=== PATIENT | male | born 1935 | race Caucasian/White ===

== ENCOUNTER 2020-07-11 10:04 | Inpatient (IN) | payer MEDICARE, BC ==
[~2020-07-11] VITALS: Ht 172.7 cm; Wt 77.6 kg
[~2020-07-11 10:04] MED LIST: AMLO5TAB88 PO; ATOR40TA70 PO; AZIT250T PO; CARV12.545 PO; FINA5TAB11 PO; HYDR-4134 PO; ISOS30TA6 PO; METO5TAB86 MT; PANT40SU PO; SUCR1TAB30 PO
[2020-07-11] MEDS ORDERED: SODIUM CHLORIDE 0.9% 1,000 ML IV ONE (11:00)
[2020-07-11 11:40] LABS: BASOPHILS % 0.4 % (0.0-2.0); HEMATOCRIT. 41.9 % (42.0-52.0); HEMOGLOBIN. 14.1 g/dL (14.0-18.0); LYMPHOCYTES % 15.6 % (20.0-50.0); MEAN CORPUSCULAR HEMOGLOBIN 32.9 pg (28.0-32.0); MEAN CORPUSCULAR VOLUME 97.7 fL (80.0-94.0); MEAN PLATELET VOLUME 9.6 fl (7.4-10.4); PLATELET 117 x1000/uL (130-400); RED BLOOD CELL COUNT 4.29 mill/uL (4.7-6.1); RED CELL DISTRIBUTION WIDTH 14.2 % (11.6-14.6)
[2020-07-11 11:44] LABS: PROTHROMBIN TIME 10.9 sec (9.6-11.0)
[2020-07-11] MEDS ORDERED: PIPERACILLIN/TAZ 3.375G PREMIX 50 ML IV ONE (11:45)
[2020-07-11] MEDS ORDERED: VANCOMYCIN 1 G PREMIX 200 ML IV ONE (11:45)
[2020-07-11 11:46] LABS: CHLORIDE 104 mEq/L (98-107)
[2020-07-11] MEDS ORDERED: DOCUSATE SODIUM 100MG CAPSULE PO PRN (13:00)
[2020-07-11] MEDS ORDERED: ENOXAPARIN 40MG/0.4ML SYR SUBCUT SCH (13:00)
[2020-07-11] MEDS: SODIUM CHLORIDE 0.45% 1,000 ML IV SCH (13:00)
[2020-07-11] MEDS ORDERED: ONDANSETRON HCL 4MG/2ML INJ IV PRN (13:00)
[2020-07-11] MEDS ORDERED: CLONIDINE 0.1MG TABLET PO PRN (13:00)
[2020-07-11] MEDS ORDERED: MORPHINE SULFATE 2 MG/ML CPJ (NOT FOR IM USE) IV PRN (13:00)
[2020-07-11] MEDS: ENOXAPARIN 30MG/0.3ML SYR SUBCUT SCH (15:55)
[2020-07-11] MEDS: SUCRALFATE 1G TABLET PO SCH ×3 (15:56→22:50)
[2020-07-11 16:10] LABS: CLARITY URINE CLEAR (CLEAR); COLOR URINE YELLOW (YELLOW); KETONES URINE NEGATIVE (NEGATIVE); LEUKOCYTE ESTERASE URINE NEGATIVE (NEGATIVE); NITRITE URINE NEGATIVE (NEGATIVE); OCCULT BLOOD URINE NEGATIVE (NEGATIVE); PH URINE 5.5 (4.5-8.0); PROTEIN URINE TRACE (NEGATIVE); UROBILINOGEN URINE 0.2 E.U./dL (0.2-1.0)
[2020-07-11] MEDS: HYDRALAZINE HCL 25MG TABLET PO SCH (21:00)
[2020-07-11] MEDS: AMLODIPINE 5MG TABLET PO SCH (22:10)
[2020-07-11] MEDS: CARVEDILOL 12.5MG TABLET PO SCH (22:50)
[2020-07-12] MEDS: ACETAMINOPHEN 325MG TABLET PO PRN ×2 (01:53→06:12)
[2020-07-12 05:00] VITALS: BP 120/40
[2020-07-12] MEDS: PANTOPRAZOLE 40MG DR TABLET PO SCH (06:11)
[2020-07-12] MEDS: SUCRALFATE 1G TABLET PO SCH ×4 (06:11→21:36)
[2020-07-12] MEDS: SODIUM CHLORIDE 0.45% 1,000 ML IV SCH ×2 (06:55→14:12)
[2020-07-12 08:01] VITALS: BP 112/53
[2020-07-12] MEDS ORDERED: CEFTRIAXONE 1 G PREMIX 50 ML IV SCH (08:15)
[2020-07-12] MEDS: CARVEDILOL 12.5MG TABLET PO SCH ×2 (09:00→23:20)
[2020-07-12] MEDS: ISOSORBIDE MONONITRATE 30MG TABLET SR 24HR PO SCH (09:48)
[2020-07-12] MEDS: AMLODIPINE 5MG TABLET PO SCH ×2 (09:48→21:38)
[2020-07-12] MEDS: HYDRALAZINE HCL 25MG TABLET PO SCH ×2 (09:49→23:19)
[2020-07-12] MEDS: ATORVASTATIN CALCIUM 40MG TABLET PO SCH (09:49)
[2020-07-12] MEDS: FINASTERIDE 5MG TABLET PO SCH (09:49)
[2020-07-12 10:21] LABS: BASOPHILS % 0.3 % (0.0-2.0); HEMATOCRIT. 39.3 % (42.0-52.0); HEMOGLOBIN. 13.2 g/dL (14.0-18.0); MEAN CORPUSCULAR HEMOGLOBIN 32.9 pg (28.0-32.0); MEAN CORPUSCULAR VOLUME 97.9 fL (80.0-94.0); MEAN PLATELET VOLUME 9.4 fl (7.4-10.4); MONOCYTES % 7.8 % (2.0-8.0); NEUTROPHILS % 70.9 % (40.0-76.0); PLATELET 107 x1000/uL (130-400); RED BLOOD CELL COUNT 4.01 mill/uL (4.7-6.1); RED CELL DISTRIBUTION WIDTH 14.3 % (11.6-14.6)
[2020-07-12 10:34] LABS: CHLORIDE 109 mEq/L (98-107)
[2020-07-12 10:41] LABS: LDL CHOLESTEROL 49 mg/dL (5-100)
[2020-07-12 10:42] LABS: HDL CHOLESTEROL 39 mg/dL (40-59)
[2020-07-12 11:48] VITALS: BP 103/43
[2020-07-12] MEDS: CEFTRIAXONE 1,000 MG in DEXTROSE 5% WATER 50 ML IV SCH (14:23)
[2020-07-12] MEDS: CLOPIDOGREL 75MG TABLET PO SCH (14:23)
[2020-07-12] MEDS: ENOXAPARIN 30MG/0.3ML SYR SUBCUT SCH (14:24)
[2020-07-12 16:00] VITALS: BP 114/38
[2020-07-12 16:41] LABS: T4 FREE 1.31 ng/dL (0.76-1.46)
[2020-07-12] MEDS: DEXAMETHASONE 10 MG/ML VIAL IV SCH (17:42)
[2020-07-12 18:03] LABS: CREATINE KINASE MB FRACTION 1.7 ng/mL (0.5-3.6)
[2020-07-12 20:45] VITALS: BP 118/61
[2020-07-12 20:46] VITALS: BP 127/70
[2020-07-12 23:47] LABS: CREATINE KINASE MB FRACTION 1.6 ng/mL (0.5-3.6)
[2020-07-13] MEDS: SODIUM CHLORIDE 0.45% 1,000 ML IV SCH ×2 (02:19→22:09)
[2020-07-13 06:59] LABS: BASOPHILS % 0.2 % (0.0-2.0); HEMATOCRIT. 39.1 % (42.0-52.0); HEMOGLOBIN. 13.3 g/dL (14.0-18.0); LYMPHOCYTES % 14.9 % (20.0-50.0); MEAN CORPUSCULAR VOLUME 97.1 fL (80.0-94.0); MEAN PLATELET VOLUME 9.2 fl (7.4-10.4); NEUTROPHILS % 81.9 % (40.0-76.0); PLATELET 115 x1000/uL (130-400); RED BLOOD CELL COUNT 4.03 mill/uL (4.7-6.1); RED CELL DISTRIBUTION WIDTH 14.5 % (11.6-14.6)
[2020-07-13 07:37] LABS: CREATINE KINASE MB FRACTION 2.5 ng/mL (0.5-3.6)
[2020-07-13] MEDS: DEXAMETHASONE 10 MG/ML VIAL IV SCH (09:00)
[2020-07-13] MEDS: HYDRALAZINE HCL 25MG TABLET PO SCH ×2 (10:25→22:01)
[2020-07-13] MEDS: AMLODIPINE 5MG TABLET PO SCH ×2 (10:26→22:02)
[2020-07-13] MEDS: FINASTERIDE 5MG TABLET PO SCH (10:26)
[2020-07-13] MEDS: ASPIRIN 81MG TABLET PO SCH (10:26)
[2020-07-13] MEDS: CLOPIDOGREL 75MG TABLET PO SCH (10:26)
[2020-07-13] MEDS: ATORVASTATIN CALCIUM 40MG TABLET PO SCH (10:27)
[2020-07-13] MEDS: CARVEDILOL 12.5MG TABLET PO SCH ×2 (10:27→22:00)
[2020-07-13] MEDS: ISOSORBIDE MONONITRATE 30MG TABLET SR 24HR PO SCH (10:27)
[2020-07-13] MEDS: ENOXAPARIN 40MG/0.4ML SYR SUBCUT SCH (10:28)
[2020-07-13] MEDS: SUCRALFATE 1G TABLET PO SCH ×4 (10:28→21:59)
[2020-07-13] MEDS: CEFTRIAXONE 1,000 MG in DEXTROSE 5% WATER 50 ML IV SCH (10:28)
[2020-07-13] MEDS: PANTOPRAZOLE 40MG DR TABLET PO SCH (10:29)
[2020-07-13 12:00] VITALS: BP 139/54
[2020-07-13] MEDS: FUROSEMIDE 40MG/4ML VIAL IVP SCH (12:09)
[2020-07-13 16:00] VITALS: BP 120/49
[2020-07-13 20:00] VITALS: BP 122/53
[2020-07-13 22:00] VITALS: BP 122/53
[2020-07-14] VITALS: BP 107/48
[2020-07-14 04:00] VITALS: BP 129/54
[2020-07-14 06:52] LABS: HEMATOCRIT. 39.5 % (42.0-52.0); HEMOGLOBIN. 13.6 g/dL (14.0-18.0); MEAN CORPUSCULAR HEMOGLOBIN 33.2 pg (28.0-32.0); MEAN CORPUSCULAR VOLUME 96.7 fL (80.0-94.0); MEAN PLATELET VOLUME 9.3 fl (7.4-10.4); PLATELET 136 x1000/uL (130-400); RED BLOOD CELL COUNT 4.08 mill/uL (4.7-6.1); RED CELL DISTRIBUTION WIDTH 14.5 % (11.6-14.6)
[2020-07-14 08:00] VITALS: BP 142/61
[2020-07-14] MEDS: CARVEDILOL 12.5MG TABLET PO SCH ×2 (08:49→21:43)
[2020-07-14] MEDS: PANTOPRAZOLE 40MG DR TABLET PO SCH (08:49)
[2020-07-14] MEDS: AMLODIPINE 5MG TABLET PO SCH ×2 (08:49→21:42)
[2020-07-14] MEDS: SUCRALFATE 1G TABLET PO SCH ×4 (08:49→21:41)
[2020-07-14] MEDS: FINASTERIDE 5MG TABLET PO SCH (08:49)
[2020-07-14] MEDS: FUROSEMIDE 40MG/4ML VIAL IVP SCH (08:50)
[2020-07-14] MEDS: ISOSORBIDE MONONITRATE 30MG TABLET SR 24HR PO SCH (08:50)
[2020-07-14] MEDS: DEXAMETHASONE 10 MG/ML VIAL IV SCH (08:50)
[2020-07-14] MEDS: ENOXAPARIN 40MG/0.4ML SYR SUBCUT SCH (08:50)
[2020-07-14] MEDS: CLOPIDOGREL 75MG TABLET PO SCH (08:50)
[2020-07-14] MEDS: HYDRALAZINE HCL 25MG TABLET PO SCH ×2 (08:50→21:43)
[2020-07-14] MEDS: ATORVASTATIN CALCIUM 40MG TABLET PO SCH (08:50)
[2020-07-14] MEDS: ASPIRIN 81MG TABLET PO SCH (08:51)
[2020-07-14] MEDS: CEFTRIAXONE 1,000 MG in DEXTROSE 5% WATER 50 ML IV SCH (12:01)
[2020-07-14 14:26] LABS: PLATELET ESTIMATE NORMAL
[2020-07-14 16:00] VITALS: BP 141/57
[2020-07-14 20:00] VITALS: BP 128/58
[2020-07-14] MEDS: ACETAMINOPHEN 325MG TABLET PO PRN (21:41)
[2020-07-15 00:06] VITALS: BP 121/62
[2020-07-15 04:37] VITALS: BP 131/61
[2020-07-15 08:00] VITALS: BP 130/60
[2020-07-15] MEDS: FUROSEMIDE 40MG/4ML VIAL IVP SCH (09:11)
[2020-07-15] MEDS: ENOXAPARIN 40MG/0.4ML SYR SUBCUT SCH (09:11)
[2020-07-15] MEDS: DEXAMETHASONE 10 MG/ML VIAL IV SCH (09:11)
[2020-07-15] MEDS: ISOSORBIDE MONONITRATE 30MG TABLET SR 24HR PO SCH (09:12)
[2020-07-15] MEDS: SUCRALFATE 1G TABLET PO SCH ×4 (09:12→21:14)
[2020-07-15] MEDS: ATORVASTATIN CALCIUM 40MG TABLET PO SCH (09:12)
[2020-07-15] MEDS: PANTOPRAZOLE 40MG DR TABLET PO SCH (09:12)
[2020-07-15] MEDS: FINASTERIDE 5MG TABLET PO SCH (09:12)
[2020-07-15] MEDS: CARVEDILOL 12.5MG TABLET PO SCH ×2 (09:13→21:00)
[2020-07-15] MEDS: AMLODIPINE 5MG TABLET PO SCH ×2 (09:13→21:00)
[2020-07-15] MEDS: CLOPIDOGREL 75MG TABLET PO SCH (09:13)
[2020-07-15] MEDS: HYDRALAZINE HCL 25MG TABLET PO SCH ×2 (09:14→21:00)
[2020-07-15] MEDS: ASPIRIN 81MG TABLET PO SCH (09:14)
[2020-07-15] MEDS: CEFTRIAXONE 1,000 MG in DEXTROSE 5% WATER 50 ML IV SCH (09:16)
[2020-07-15 12:00] VITALS: BP 129/58
[2020-07-15 16:00] VITALS: BP 119/59
[2020-07-15 20:00] VITALS: BP 101/53
[2020-07-15] MEDS: ACETAMINOPHEN 325MG TABLET PO PRN (21:33)
[2020-07-16] VITALS: BP 136/67
[2020-07-16 04:00] VITALS: BP 145/60
[2020-07-16] MEDS: PANTOPRAZOLE 40MG DR TABLET PO SCH (05:58)
[2020-07-16] MEDS: SUCRALFATE 1G TABLET PO SCH ×4 (05:58→21:00)
[2020-07-16] MEDS: AMLODIPINE 5MG TABLET PO SCH ×2 (09:40→21:15)
[2020-07-16] MEDS: ENOXAPARIN 40MG/0.4ML SYR SUBCUT SCH (09:40)
[2020-07-16] MEDS: FINASTERIDE 5MG TABLET PO SCH (09:41)
[2020-07-16] MEDS: ASPIRIN 81MG TABLET PO SCH (09:41)
[2020-07-16] MEDS: ATORVASTATIN CALCIUM 40MG TABLET PO SCH (09:41)
[2020-07-16] MEDS: CARVEDILOL 12.5MG TABLET PO SCH ×2 (09:41→21:15)
[2020-07-16] MEDS: HYDRALAZINE HCL 25MG TABLET PO SCH ×2 (09:41→21:14)
[2020-07-16] MEDS: CLOPIDOGREL 75MG TABLET PO SCH (09:41)
[2020-07-16] MEDS: ISOSORBIDE MONONITRATE 30MG TABLET SR 24HR PO SCH (09:41)
[2020-07-16] MEDS: CEFTRIAXONE 1,000 MG in DEXTROSE 5% WATER 50 ML IV SCH (10:48)
[2020-07-16] MEDS: FUROSEMIDE 40MG/4ML VIAL IVP SCH (10:48)
[2020-07-16] MEDS: DEXAMETHASONE 10 MG/ML VIAL IV SCH (10:48)
[2020-07-16 12:00] VITALS: BP 134/59
[2020-07-16 16:00] VITALS: BP 141/76
[2020-07-16 20:00] VITALS: BP 164/68
[2020-07-16] MEDS: ZOLPIDEM TARTRATE 5MG TABLET PO PRN (21:14)
[2020-07-17] VITALS: BP 142/65
[2020-07-17 04:00] VITALS: BP 146/62
[2020-07-17] MEDS: FAMOTIDINE 20MG TABLET PO SCH (06:00)
[2020-07-17] MEDS: SUCRALFATE 1G TABLET PO SCH ×4 (06:00→21:30)
[2020-07-17 08:00] VITALS: BP 134/61
[2020-07-17] MEDS: DEXAMETHASONE 10 MG/ML VIAL IV SCH (09:41)
[2020-07-17] MEDS: ENOXAPARIN 40MG/0.4ML SYR SUBCUT SCH (09:41)
[2020-07-17] MEDS: FINASTERIDE 5MG TABLET PO SCH (09:41)
[2020-07-17] MEDS: ATORVASTATIN CALCIUM 40MG TABLET PO SCH (09:41)
[2020-07-17] MEDS: CLOPIDOGREL 75MG TABLET PO SCH (09:41)
[2020-07-17] MEDS: CARVEDILOL 12.5MG TABLET PO SCH ×2 (09:42→21:31)
[2020-07-17] MEDS: ISOSORBIDE MONONITRATE 30MG TABLET SR 24HR PO SCH (09:42)
[2020-07-17] MEDS: ASPIRIN 81MG TABLET PO SCH (09:42)
[2020-07-17] MEDS: AMLODIPINE 5MG TABLET PO SCH ×2 (09:43→21:31)
[2020-07-17] MEDS: HYDRALAZINE HCL 25MG TABLET PO SCH ×2 (09:43→21:32)
[2020-07-17] MEDS: FUROSEMIDE 20MG TABLET PO SCH (09:45)
[2020-07-17 10:25] LABS: BASOPHILS % 0.2 % (0.0-2.0); HEMATOCRIT. 41.6 % (42.0-52.0); HEMOGLOBIN. 13.8 g/dL (14.0-18.0); LYMPHOCYTES % 7.6 % (20.0-50.0); MEAN CORPUSCULAR VOLUME 96.5 fL (80.0-94.0); MEAN PLATELET VOLUME 8.6 fl (7.4-10.4); MONOCYTES % 4.2 % (2.0-8.0); PLATELET 202 x1000/uL (130-400); RED BLOOD CELL COUNT 4.32 mill/uL (4.7-6.1)
[2020-07-17] MEDS: CEFTRIAXONE 1,000 MG in DEXTROSE 5% WATER 50 ML IV SCH (11:16)
[2020-07-17 12:00] VITALS: BP 126/67
[2020-07-17] MEDS ORDERED: POTASSIUM CHLORIDE 20MEQ TABLET SR PO NR (14:15)
[2020-07-17 16:00] VITALS: BP 138/62
[2020-07-17 20:00] VITALS: BP 139/63
[2020-07-17] MEDS: ZOLPIDEM TARTRATE 5MG TABLET PO PRN (21:56)
[2020-07-18] VITALS: BP 136/62
[2020-07-18 04:00] VITALS: BP 150/66
[2020-07-18] MEDS: SUCRALFATE 1G TABLET PO SCH ×4 (05:18→22:02)
[2020-07-18] MEDS: FAMOTIDINE 20MG TABLET PO SCH (05:18)
[2020-07-18 07:10] LABS: HEMATOCRIT. 43.7 % (42.0-52.0); HEMOGLOBIN. 14.6 g/dL (14.0-18.0); MEAN CORPUSCULAR HEMOGLOBIN 32.1 pg (28.0-32.0); MEAN CORPUSCULAR VOLUME 95.7 fL (80.0-94.0); MEAN PLATELET VOLUME 8.5 fl (7.4-10.4); PLATELET 219 x1000/uL (130-400); RED BLOOD CELL COUNT 4.56 mill/uL (4.7-6.1)
[2020-07-18 08:00] VITALS: BP 155/73
[2020-07-18] MEDS: CARVEDILOL 12.5MG TABLET PO SCH ×2 (08:02→22:04)
[2020-07-18] MEDS: FUROSEMIDE 20MG TABLET PO SCH (08:02)
[2020-07-18] MEDS: ATORVASTATIN CALCIUM 40MG TABLET PO SCH (08:02)
[2020-07-18] MEDS: ASPIRIN 81MG TABLET PO SCH (08:02)
[2020-07-18] MEDS: ISOSORBIDE MONONITRATE 30MG TABLET SR 24HR PO SCH (08:02)
[2020-07-18] MEDS: HYDRALAZINE HCL 25MG TABLET PO SCH ×2 (08:02→22:02)
[2020-07-18] MEDS: ENOXAPARIN 40MG/0.4ML SYR SUBCUT SCH (08:03)
[2020-07-18] MEDS: FINASTERIDE 5MG TABLET PO SCH (08:03)
[2020-07-18] MEDS: DEXAMETHASONE 10 MG/ML VIAL IV SCH (08:03)
[2020-07-18] MEDS: AMLODIPINE 5MG TABLET PO SCH ×2 (08:03→22:03)
[2020-07-18] MEDS: CLOPIDOGREL 75MG TABLET PO SCH (08:03)
[2020-07-18 12:00] VITALS: BP 141/75
[2020-07-18 14:51] LABS: PLATELET ESTIMATE NORMAL
[2020-07-18 16:00] VITALS: BP 144/66
[2020-07-18 18:22] LABS: BG BASE EXCESS -1.1 mmol/L (-2.0-2.0); BG CARBOXYHEMOGLOBIN 0.3 % (0.5-1.5); BG DEOXYHEMOGLOBIN 10.8 % (0.0-5.0); BG FRACTION INSPIRED OXYGEN 21; BG HCO3 ACT 20.3 mmol/L (22.0-26.0); BG METHEMOGLOBIN 0.1 % (0.0-1.5); BG OXYGEN SATURATION 89.2 % (92.0-98.5); BG OXYHEMOGLOBIN 88.8 % (94.0-97.0); BG PCO2 26.9 mmHg (35.0-45.0); BG PH 7.495 (7.350-7.450); BG PO2 54.6 mmHg (75.0-100.0); BG SAMPLE SITE LEFT RADIAL; BG TOTAL HEMOGLOBIN 17.4 g/dL (12.0-18.0); BG VENT MODE ROOM AIR
[2020-07-18 20:00] VITALS: BP 127/67
[2020-07-18] MEDS: ZOLPIDEM TARTRATE 5MG TABLET PO PRN (22:01)
[2020-07-19] VITALS: BP 135/64
[2020-07-19 04:00] VITALS: BP 125/71
[2020-07-19] MEDS: FAMOTIDINE 20MG TABLET PO SCH (05:12)
[2020-07-19] MEDS: SUCRALFATE 1G TABLET PO SCH ×4 (05:12→21:01)
[2020-07-19 07:34] LABS: HEMATOCRIT. 44.5 % (42.0-52.0); MEAN CORPUSCULAR HEMOGLOBIN 32.6 pg (28.0-32.0); MEAN CORPUSCULAR VOLUME 96.8 fL (80.0-94.0); MEAN PLATELET VOLUME 8.7 fl (7.4-10.4); PLATELET 271 x1000/uL (130-400); RED BLOOD CELL COUNT 4.59 mill/uL (4.7-6.1); RED CELL DISTRIBUTION WIDTH 13.6 % (11.6-14.6)
[2020-07-19 08:00] VITALS: BP 134/73
[2020-07-19] MEDS: CLOPIDOGREL 75MG TABLET PO SCH (08:12)
[2020-07-19] MEDS: CARVEDILOL 12.5MG TABLET PO SCH ×2 (08:12→21:00)
[2020-07-19] MEDS: ISOSORBIDE MONONITRATE 30MG TABLET SR 24HR PO SCH (08:12)
[2020-07-19] MEDS: ENOXAPARIN 40MG/0.4ML SYR SUBCUT SCH (08:12)
[2020-07-19] MEDS: FUROSEMIDE 20MG TABLET PO SCH (08:12)
[2020-07-19] MEDS: DEXAMETHASONE 10 MG/ML VIAL IV SCH (08:12)
[2020-07-19] MEDS: AMLODIPINE 5MG TABLET PO SCH ×2 (08:13→21:00)
[2020-07-19] MEDS: HYDRALAZINE HCL 25MG TABLET PO SCH ×2 (08:13→21:00)
[2020-07-19] MEDS: ATORVASTATIN CALCIUM 40MG TABLET PO SCH (08:13)
[2020-07-19] MEDS: ASPIRIN 81MG TABLET PO SCH (08:13)
[2020-07-19] MEDS: FINASTERIDE 5MG TABLET PO SCH (08:13)
[2020-07-19 12:00] VITALS: BP 125/71
[2020-07-19 15:09] LABS: PLATELET ESTIMATE NORMAL
[2020-07-19 16:00] VITALS: BP 136/68
[2020-07-19 20:00] VITALS: BP 128/56
[2020-07-20] VITALS: BP 138/58
[2020-07-20 04:00] VITALS: BP 140/65
[2020-07-20] MEDS: FAMOTIDINE 20MG TABLET PO SCH (05:10)
[2020-07-20] MEDS: SUCRALFATE 1G TABLET PO SCH (05:10)
[2020-07-20 07:21] LABS: HEMATOCRIT. 40.9 % (42.0-52.0); HEMOGLOBIN. 13.7 g/dL (14.0-18.0); MEAN CORPUSCULAR HEMOGLOBIN 32.2 pg (28.0-32.0); MEAN CORPUSCULAR VOLUME 96.4 fL (80.0-94.0); MEAN PLATELET VOLUME 8.6 fl (7.4-10.4); PLATELET 263 x1000/uL (130-400); RED BLOOD CELL COUNT 4.24 mill/uL (4.7-6.1); RED CELL DISTRIBUTION WIDTH 13.8 % (11.6-14.6)
[2020-07-20 08:45] VITALS: BP 145/64
[2020-07-20] MEDS: DEXAMETHASONE 10 MG/ML VIAL IV SCH (08:49)
[2020-07-20] MEDS: CARVEDILOL 12.5MG TABLET PO SCH (08:49)
[2020-07-20] MEDS: AMLODIPINE 5MG TABLET PO SCH (08:49)
[2020-07-20] MEDS: ATORVASTATIN CALCIUM 40MG TABLET PO SCH (08:50)
[2020-07-20] MEDS: CLOPIDOGREL 75MG TABLET PO SCH (08:50)
[2020-07-20] MEDS: ISOSORBIDE MONONITRATE 30MG TABLET SR 24HR PO SCH (08:50)
[2020-07-20] MEDS: ASPIRIN 81MG TABLET PO SCH (08:51)
[2020-07-20] MEDS: FUROSEMIDE 20MG TABLET PO SCH (08:51)
[2020-07-20] MEDS: HYDRALAZINE HCL 25MG TABLET PO SCH (08:51)
[2020-07-20] MEDS: ENOXAPARIN 40MG/0.4ML SYR SUBCUT SCH (09:02)
[2020-07-20] MEDS ORDERED: POTASSIUM CHLORIDE 20MEQ TABLET SR PO SCH (09:30)
[2020-07-20 10:21] VITALS: BP 147/65
[2020-07-20] MEDS: FINASTERIDE 5MG TABLET PO SCH (11:03)
[2020-07-20 22:24] LABS: PLATELET ESTIMATE NORMAL
== END 2020-07-20 18:16 | disposition home or self-care (01) | DRG 871 ==
LOC: ER 10:15 → MICUSO 13:30 → EDBEDREQ 13:33 → EDBEDREQSVC 13:33 → EDBEDREQTM 13:33 → 6WST 07-12 02:15 → 7WST 07-12 14:57
PROVIDERS: ADMIT Internal Medicine Nephrology; ATTEND Internal Medicine Nephrology
DX: A41.89 Other specified sepsis (principal); U07.1 COVID-19; J96.00 Acute respiratory failure, unspecified whether with hypoxia or hypercapnia; J12.82 Pneumonia due to coronavirus disease 2019; I13.0 Hypertensive heart and chronic kidney disease with heart failure and stage 1 through stage 4 chronic kidney disease, or unspecified chronic kidney disease; N17.9 Acute kidney failure, unspecified; I50.22 Chronic systolic (congestive) heart failure; D61.818 Other pancytopenia; D69.6 Thrombocytopenia, unspecified; E78.5 Hyperlipidemia, unspecified; F17.200 Nicotine dependence, unspecified, uncomplicated; I25.10 Atherosclerotic heart disease of native coronary artery without angina pectoris; I25.5 Ischemic cardiomyopathy; I71.4 Abdominal aortic aneurysm, without rupture; J45.909 Unspecified asthma, uncomplicated; K44.9 Diaphragmatic hernia without obstruction or gangrene; N18.30 Chronic kidney disease, stage 3 unspecified; T38.0X5A Adverse effect of glucocorticoids and synthetic analogues, initial encounter; B97.89 Other viral agents as the cause of diseases classified elsewhere; I95.9 Hypotension, unspecified; D64.9 Anemia, unspecified; R77.8 Other specified abnormalities of plasma proteins; N40.0 Benign prostatic hyperplasia without lower urinary tract symptoms; Z85.528 Personal history of other malignant neoplasm of kidney; Z95.1 Presence of aortocoronary bypass graft; Z90.5 Acquired absence of kidney; Z79.02 Long term (current) use of antithrombotics/antiplatelets; Z79.899 Other long term (current) drug therapy; Y92.89 Other specified places as the place of occurrence of the external cause; Z79.2 Long term (current) use of antibiotics
CPT/HCPCS: 36415; 36600; 71045; 80048; 80053; 80061; 81003; 82140; 82375; 82550; 82553; 82805; 83036; 83605; 83880; 84145; 84439; 84443; 84484; 85025; 85379; 87426; 93005; 93306; 93970; 96365; 99285; J0696; J1100; J1650; J1940; J2543; J3370; J7030; J7060; U0003

== ENCOUNTER 2021-05-27 11:46 | Inpatient (IN) | payer MEDICARE, BC ==
[~2021-05-27] VITALS: Ht 170.2 cm; Wt 73.3 kg
[~2021-05-27 11:46] MED LIST changes: -ISOS30TA6 PO; +ISOS30TA91 PO
[2021-05-27] MEDS ORDERED: ALBUTEROL (0.083%) 2.5MG/3ML NEB HHN ONE (12:15)
[2021-05-27] MEDS ORDERED: DEXAMETHASONE 10 MG/ML VIAL IV ONE (12:15)
[2021-05-27] MEDS ORDERED: IPRATROPIUM BROMIDE (0.02%) 0.5MG/2.5ML NEB HHN ONE (12:15)
[2021-05-27 12:24] LABS: BG BASE EXCESS 1.9 mmol/L (-2.0-2.0); BG CARBOXYHEMOGLOBIN 0.1 % (0.5-1.5); BG DEOXYHEMOGLOBIN 5.5 % (0.0-5.0); BG FRACTION INSPIRED OXYGEN 21; BG HCO3 ACT 23.6 mmol/L (22.0-26.0); BG METHEMOGLOBIN 0.2 % (0.0-1.5); BG OXYGEN SATURATION 94.5 % (92.0-98.5); BG OXYHEMOGLOBIN 94.2 % (94.0-97.0); BG PCO2 28.6 mmHg (35.0-45.0); BG PH 7.534 (7.350-7.450); BG SAMPLE SITE RIGHT RADIAL; BG TOTAL HEMOGLOBIN 12.8 g/dL (12.0-18.0); BG VENT MODE ROOM AIR
[2021-05-27 12:58] LABS: CHLORIDE 100 mEq/L (98-107)
[2021-05-27] MEDS ORDERED: POTASSIUM CHLORIDE 20MEQ TABLET SR PO ONE (13:30)
[2021-05-27] MEDS ORDERED: PIPERACILLIN/TAZOBACTAM 3.375GM/50ML PREMIX IV ONE (13:30)
[2021-05-27] MEDS ORDERED: ASPIRIN 325MG EC TABLET PO ONE (13:30)
[2021-05-27] MEDS ORDERED: ENOXAPARIN 60MG/0.6ML SYR SUBCUT NR (13:30)
[2021-05-27] MEDS ORDERED: VANCOMYCIN 1 G PREMIX 200 ML IV NR (13:30)
[2021-05-27] MEDS ORDERED: PIPERACILLIN/TAZ 3.375G PREMIX 50 ML IV NR (13:30)
[2021-05-27 13:58] LABS: BASOPHILS % 0.3 % (0.0-2.0); EOSINOPHILS % 1.1 % (0.0-5.0); HEMATOCRIT. 37.8 % (42.0-52.0); HEMOGLOBIN. 12.5 g/dL (14.0-18.0); LYMPHOCYTES % 24.6 % (20.0-50.0); MEAN CORPUSCULAR HEMOGLOBIN 31.8 pg (28.0-32.0); MEAN CORPUSCULAR VOLUME 96.4 fL (80.0-94.0); MEAN PLATELET VOLUME 10.1 fl (7.4-10.4); MONOCYTES % 9.5 % (2.0-8.0); NEUTROPHILS % 64.5 % (40.0-76.0); PLATELET 191 x1000/uL (130-400); RED BLOOD CELL COUNT 3.92 mill/uL (4.7-6.1); RED CELL DISTRIBUTION WIDTH 14.5 % (11.6-14.6)
[2021-05-27] MEDS ORDERED: FUROSEMIDE 40MG/4ML VIAL IVP NR (14:00)
[2021-05-27 20:05] LABS: CLARITY URINE CLEAR (CLEAR); COLOR URINE YELLOW (YELLOW); KETONES URINE NEGATIVE (NEGATIVE); LEUKOCYTE ESTERASE URINE NEGATIVE (NEGATIVE); NITRITE URINE NEGATIVE (NEGATIVE); OCCULT BLOOD URINE NEGATIVE (NEGATIVE); PROTEIN URINE NEGATIVE (NEGATIVE); SPECIFIC GRAVITY URINE 1.013 (1.005-1.030); UROBILINOGEN URINE 0.2 E.U./dL (0.2-1.0)
[2021-05-28] MEDS ORDERED: IPRATROPIUM/ALBUTEROL 0.5-3(2.5)MG/3ML NEB NEB SCH (06:15)
[2021-05-28] MEDS ORDERED: CLONIDINE 0.1MG TABLET PO PRN (06:15)
[2021-05-28] MEDS ORDERED: ONDANSETRON HCL 4MG/2ML INJ IV PRN (06:15)
[2021-05-28] MEDS ORDERED: ENOXAPARIN 40MG/0.4ML SYR SUBCUT SCH (06:15)
[2021-05-28] MEDS ORDERED: MORPHINE SULFATE 2 MG/ML CPJ (NOT FOR IM USE) IV PRN (06:15)
[2021-05-28] MEDS ORDERED: AZITHROMYCIN 500 MG in DEXT 5% WATER 250 ML IV SCH (06:30)
[2021-05-28] MEDS ORDERED: DEXAMETHASONE 10 MG/ML VIAL IV SCH (07:00)
[2021-05-28] MEDS: SUCRALFATE 1G TABLET PO SCH ×4 (07:24→21:11)
[2021-05-28] MEDS ORDERED: DOCUSATE SODIUM 100MG CAPSULE PO PRN (09:00)
[2021-05-28] MEDS ORDERED: NALOXONE HCL 0.4MG/ML VIAL IV PRN (09:00)
[2021-05-28 09:19] VITALS: BP 112/79
[2021-05-28 09:21] VITALS: BP 130/79
[2021-05-28] MEDS: ISOSORBIDE MONONITRATE 30MG TABLET SR 24HR PO SCH ×2 (10:29→17:24)
[2021-05-28] MEDS: AMLODIPINE 5MG TABLET PO SCH ×2 (10:30→17:24)
[2021-05-28] MEDS: CARVEDILOL 12.5MG TABLET PO SCH ×2 (10:30→21:12)
[2021-05-28] MEDS: FINASTERIDE 5MG TABLET PO SCH (10:30)
[2021-05-28] MEDS: ENOXAPARIN 30MG/0.3ML SYR SUBCUT SCH (10:31)
[2021-05-28] MEDS: FUROSEMIDE 40MG/4ML VIAL IVP SCH ×2 (10:38→18:08)
[2021-05-28] MEDS ORDERED: GUAIFENESIN-DM 200MG-20MG/10ML UDC PO PRN (11:15)
[2021-05-28] MEDS ORDERED: ALBUTEROL 6.7GM HFA INHALER ORI PRN (11:15)
[2021-05-28 12:00] VITALS: BP 126/67
[2021-05-28 16:00] VITALS: BP 127/59
[2021-05-28 20:00] VITALS: BP 123/71
[2021-05-29] VITALS: BP 127/71
[2021-05-29 04:00] VITALS: BP 124/70
[2021-05-29] MEDS: SUCRALFATE 1G TABLET PO SCH ×4 (06:45→20:28)
[2021-05-29 07:22] LABS: BASOPHILS % 0.1 % (0.0-2.0); HEMATOCRIT. 37.8 % (42.0-52.0); HEMOGLOBIN. 12.6 g/dL (14.0-18.0); LYMPHOCYTES % 10.7 % (20.0-50.0); MEAN CORPUSCULAR HEMOGLOBIN 32.4 pg (28.0-32.0); MEAN CORPUSCULAR VOLUME 97.2 fL (80.0-94.0); MEAN PLATELET VOLUME 10.4 fl (7.4-10.4); MONOCYTES % 5.6 % (2.0-8.0); NEUTROPHILS % 83.6 % (40.0-76.0); PLATELET 158 x1000/uL (130-400); RED BLOOD CELL COUNT 3.88 mill/uL (4.7-6.1); RED CELL DISTRIBUTION WIDTH 14.9 % (11.6-14.6)
[2021-05-29 07:41] LABS: CHLORIDE 95 mEq/L (98-107)
[2021-05-29 08:00] VITALS: BP 119/95
[2021-05-29] MEDS: AZITHROMYCIN 500 MG in DEXT 5% WATER 250 ML IV SCH (08:42)
[2021-05-29] MEDS: FUROSEMIDE 40MG/4ML VIAL IVP SCH (08:43)
[2021-05-29] MEDS: DEXAMETHASONE 10 MG/ML VIAL IV SCH (08:43)
[2021-05-29] MEDS: FINASTERIDE 5MG TABLET PO SCH (09:33)
[2021-05-29] MEDS: AMLODIPINE 5MG TABLET PO SCH ×2 (09:33→17:33)
[2021-05-29] MEDS: ENOXAPARIN 30MG/0.3ML SYR SUBCUT SCH (09:34)
[2021-05-29 12:00] VITALS: BP 95/51
[2021-05-29] MEDS: FUROSEMIDE 40MG TABLET PO SCH (12:55)
[2021-05-29 16:00] VITALS: BP 110/58
[2021-05-29 20:00] VITALS: BP 118/61
[2021-05-29] MEDS: ZOLPIDEM TARTRATE 5MG TABLET PO PRN (21:26)
[2021-05-29 21:32] LABS: VITAMIN B12 SERUM >2000 pg/mL pg/mL (211-911)
[2021-05-29 21:34] LABS: FOLIC ACID (FOLATE) SERUM > 20.00 ng/mL (>5.38)
[2021-05-30 00:23] LABS: HEPATITIS B SURFACE ANTIGEN NEGATIVE
[2021-05-30] MEDS ORDERED: ALBUTEROL (0.083%) 2.5MG/3ML NEB HHN PRN (02:15)
[2021-05-30 04:00] VITALS: BP 125/68
[2021-05-30] MEDS: SUCRALFATE 1G TABLET PO SCH ×4 (06:10→21:25)
[2021-05-30] MEDS: LORAZEPAM 2MG/ML CPJ IV PRN (07:47)
[2021-05-30 08:00] VITALS: BP 104/52
[2021-05-30] MEDS ORDERED: SODIUM CHLORIDE 0.9% 1,000 ML IV SCH (08:00)
[2021-05-30] MEDS: ISOSORBIDE MONONITRATE 30MG TABLET SR 24HR PO SCH (09:00)
[2021-05-30] MEDS: AMLODIPINE 5MG TABLET PO SCH ×2 (09:00→17:33)
[2021-05-30] MEDS: AZITHROMYCIN 500 MG in DEXT 5% WATER 250 ML IV SCH (10:00)
[2021-05-30] MEDS: FUROSEMIDE 40MG TABLET PO SCH (10:01)
[2021-05-30] MEDS: DEXAMETHASONE 10 MG/ML VIAL IV SCH (10:01)
[2021-05-30] MEDS: FINASTERIDE 5MG TABLET PO SCH (10:01)
[2021-05-30] MEDS: ENOXAPARIN 30MG/0.3ML SYR SUBCUT SCH (10:44)
[2021-05-30 10:56] LABS: HEMATOCRIT. 35.9 % (42.0-52.0); HEMOGLOBIN. 12.2 g/dL (14.0-18.0); MEAN CORPUSCULAR HEMOGLOBIN 33.4 pg (28.0-32.0); MEAN CORPUSCULAR VOLUME 98.5 fL (80.0-94.0); MEAN PLATELET VOLUME 11.2 fl (7.4-10.4); PLATELET 117 x1000/uL (130-400); RED BLOOD CELL COUNT 3.65 mill/uL (4.7-6.1); RED CELL DISTRIBUTION WIDTH 14.5 % (11.6-14.6)
[2021-05-30 12:00] VITALS: BP 118/76
[2021-05-30 13:51] LABS: PLATELET ESTIMATE SLIGHTLY DECREASED
[2021-05-30 16:00] VITALS: BP 110/56
[2021-05-30 20:00] VITALS: BP 109/40
[2021-05-30] MEDS: SODIUM BICARBONATE 100 MEQ in DEXTROSE 5% WATER 1,000 ML IV SCH (21:26)
[2021-05-31] VITALS: BP 125/72
[2021-05-31 04:00] VITALS: BP 104/59
[2021-05-31] MEDS: SUCRALFATE 1G TABLET PO SCH ×4 (06:20→21:55)
[2021-05-31 07:53] LABS: BASOPHILS % 0.1 % (0.0-2.0); HEMATOCRIT. 37.4 % (42.0-52.0); HEMOGLOBIN. 12.5 g/dL (14.0-18.0); LYMPHOCYTES % 7.9 % (20.0-50.0); MEAN CORPUSCULAR HEMOGLOBIN 32.7 pg (28.0-32.0); MEAN CORPUSCULAR VOLUME 97.9 fL (80.0-94.0); MEAN PLATELET VOLUME 11.7 fl (7.4-10.4); MONOCYTES % 4.6 % (2.0-8.0); NEUTROPHILS % 87.4 % (40.0-76.0); PLATELET 121 x1000/uL (130-400); RED BLOOD CELL COUNT 3.82 mill/uL (4.7-6.1); RED CELL DISTRIBUTION WIDTH 14.4 % (11.6-14.6)
[2021-05-31 08:00] VITALS: BP 117/59
[2021-05-31] MEDS: AZITHROMYCIN 500 MG TABLET PO SCH (09:09)
[2021-05-31] MEDS: ISOSORBIDE MONONITRATE 30MG TABLET SR 24HR PO SCH (09:09)
[2021-05-31] MEDS: AMLODIPINE 5MG TABLET PO SCH ×2 (09:09→17:00)
[2021-05-31] MEDS: FINASTERIDE 5MG TABLET PO SCH (09:09)
[2021-05-31] MEDS: ENOXAPARIN 30MG/0.3ML SYR SUBCUT SCH (09:09)
[2021-05-31] MEDS ORDERED: DIATR MEGLU/DIATRIZOATE SOLN 30ML PO SCH (10:45)
[2021-05-31 12:00] VITALS: BP 95/56
[2021-05-31] MEDS ORDERED: MANNITOL 12.5G (25%) VIAL 50ML IV NR (12:00)
[2021-05-31] MEDS: SODIUM BICARBONATE 100 MEQ in DEXTROSE 5% WATER 1,000 ML IV SCH (13:36)
[2021-05-31 13:46] LABS: PARTIAL THROMBOPLASTIN TIME 37.1 sec (23.4-31.0); PROTHROMBIN TIME 20.3 sec (9.6-11.0)
[2021-05-31] MEDS ORDERED: PHYTONADIONE 10MG/ML AMP SUBCUT NR (14:00)
[2021-05-31] MEDS ORDERED: IPRATROPIUM/ALBUTEROL 0.5-3(2.5)MG/3ML NEB HHN ONE (14:15)
[2021-05-31] MEDS ORDERED: IPRATROPIUM/ALBUTEROL 0.5-3(2.5)MG/3ML NEB HHN PRN (14:15)
[2021-05-31] MEDS ORDERED: RACEPINEPHRINE 2.25% 0.5ML NEB VIAL HHN SCH (14:15)
[2021-05-31] MEDS ORDERED: LIDOCAINE HCL 1% 20ML VIAL (Pyxis) INJ ONE (14:27)
[2021-05-31 15:23] LABS: BG BASE EXCESS -6.7 mmol/L (-2.0-2.0); BG DEOXYHEMOGLOBIN 2.8 % (0.0-5.0); BG FRACTION INSPIRED OXYGEN 32; BG HCO3 ACT 16.2 mmol/L (22.0-26.0); BG METHEMOGLOBIN 0.1 % (0.0-1.5); BG OXYGEN SATURATION 97.2 % (92.0-98.5); BG OXYHEMOGLOBIN 97.1 % (94.0-97.0); BG PCO2 25.8 mmHg (35.0-45.0); BG PH 7.415 (7.350-7.450); BG PO2 99.4 mmHg (75.0-100.0); BG SAMPLE SITE RIGHT RADIAL; BG TOTAL HEMOGLOBIN 12.9 g/dL (12.0-18.0); BG VENT MODE NASAL CANNULA
[2021-05-31 16:00] VITALS: BP 96/55
[2021-05-31] MEDS ORDERED: RACEPINEPHRINE 2.25% 0.5ML NEB VIAL HHN PRN (18:00)
[2021-05-31] MEDS: SODIUM CHLORIDE 0.9% 1,000 ML IV SCH (18:34)
[2021-05-31 21:47] VITALS: BP 121/59
[2021-06-01] VITALS: BP 109/52
[2021-06-01] MEDS: IPRATROPIUM/ALBUTEROL 0.5-3(2.5)MG/3ML NEB HHN SCH ×4 (01:14→21:34)
[2021-06-01 04:00] VITALS: BP 102/48
[2021-06-01] MEDS: SODIUM CHLORIDE 0.9% 1,000 ML IV SCH ×2 (05:03→15:40)
[2021-06-01 06:34] LABS: BASOPHILS % 0.1 % (0.0-2.0); HEMATOCRIT. 36.5 % (42.0-52.0); HEMOGLOBIN. 12.2 g/dL (14.0-18.0); LYMPHOCYTES % 7.8 % (20.0-50.0); MEAN CORPUSCULAR HEMOGLOBIN 32.7 pg (28.0-32.0); MEAN CORPUSCULAR VOLUME 97.6 fL (80.0-94.0); MEAN PLATELET VOLUME 11.6 fl (7.4-10.4); MONOCYTES % 5.2 % (2.0-8.0); NEUTROPHILS % 86.9 % (40.0-76.0); PLATELET 111 x1000/uL (130-400); RED BLOOD CELL COUNT 3.74 mill/uL (4.7-6.1); RED CELL DISTRIBUTION WIDTH 14.4 % (11.6-14.6)
[2021-06-01] MEDS: SUCRALFATE 1G TABLET PO SCH ×4 (06:43→21:34)
[2021-06-01 08:00] VITALS: BP 130/70
[2021-06-01] MEDS: AZITHROMYCIN 500 MG TABLET PO SCH (09:00)
[2021-06-01] MEDS: ISOSORBIDE MONONITRATE 30MG TABLET SR 24HR PO SCH (09:00)
[2021-06-01] MEDS: AMLODIPINE 5MG TABLET PO SCH ×2 (09:00→16:31)
[2021-06-01] MEDS: ENOXAPARIN 30MG/0.3ML SYR SUBCUT SCH (09:00)
[2021-06-01] MEDS: FINASTERIDE 5MG TABLET PO SCH (09:00)
[2021-06-01] MEDS: MIDODRINE HCL 5MG TABLET PO SCH ×3 (09:45→16:31)
[2021-06-01 12:00] VITALS: BP 113/58
[2021-06-01 16:00] VITALS: BP 112/60
[2021-06-01 20:00] VITALS: BP 116/64
[2021-06-01] MEDS: ZOLPIDEM TARTRATE 5MG TABLET PO PRN (21:34)
[2021-06-01 22:12] LABS: CREATINE KINASE 8138 IU/L (39-308)
[2021-06-02] VITALS: BP 109/62
[2021-06-02] MEDS: LORAZEPAM 2MG/ML CPJ IV PRN (00:56)
[2021-06-02 04:00] VITALS: BP 149/80
[2021-06-02] MEDS: SODIUM CHLORIDE 0.9% 1,000 ML IV SCH ×2 (05:24→19:20)
[2021-06-02] MEDS: SUCRALFATE 1G TABLET PO SCH ×4 (05:59→20:48)
[2021-06-02 08:00] VITALS: BP 100/53
[2021-06-02] MEDS: AMLODIPINE 5MG TABLET PO SCH ×2 (08:21→17:00)
[2021-06-02] MEDS: ISOSORBIDE MONONITRATE 30MG TABLET SR 24HR PO SCH (08:28)
[2021-06-02] MEDS: MIDODRINE HCL 5MG TABLET PO SCH ×3 (08:29→17:26)
[2021-06-02] MEDS: FINASTERIDE 5MG TABLET PO SCH (08:29)
[2021-06-02] MEDS: ENOXAPARIN 30MG/0.3ML SYR SUBCUT SCH (08:29)
[2021-06-02 08:46] LABS: BASOPHILS % 0.2 % (0.0-2.0); HEMATOCRIT. 35.7 % (42.0-52.0); HEMOGLOBIN. 11.9 g/dL (14.0-18.0); LYMPHOCYTES % 9.1 % (20.0-50.0); MEAN CORPUSCULAR HEMOGLOBIN 31.9 pg (28.0-32.0); MEAN CORPUSCULAR VOLUME 95.5 fL (80.0-94.0); MEAN PLATELET VOLUME 11.7 fl (7.4-10.4); MONOCYTES % 6.5 % (2.0-8.0); NEUTROPHILS % 84.2 % (40.0-76.0); PLATELET 108 x1000/uL (130-400); RED BLOOD CELL COUNT 3.74 mill/uL (4.7-6.1); RED CELL DISTRIBUTION WIDTH 14.6 % (11.6-14.6)
[2021-06-02 12:00] VITALS: BP 126/64
[2021-06-02] MEDS: IPRATROPIUM/ALBUTEROL 0.5-3(2.5)MG/3ML NEB HHN SCH ×2 (15:10→21:45)
[2021-06-02 16:00] VITALS: BP 114/62
[2021-06-02 20:00] VITALS: BP 92/51
[2021-06-02] MEDS: ZOLPIDEM TARTRATE 5MG TABLET PO PRN (22:56)
[2021-06-03] VITALS: BP 127/58
[2021-06-03] MEDS: IPRATROPIUM/ALBUTEROL 0.5-3(2.5)MG/3ML NEB HHN SCH ×4 (02:26→20:53)
[2021-06-03 04:00] VITALS: BP 121/65
[2021-06-03] MEDS: SUCRALFATE 1G TABLET PO SCH ×4 (06:37→20:15)
[2021-06-03 07:45] VITALS: BP 115/58
[2021-06-03] MEDS: AMLODIPINE 5MG TABLET PO SCH ×2 (08:55→16:08)
[2021-06-03] MEDS: FINASTERIDE 5MG TABLET PO SCH (08:55)
[2021-06-03] MEDS: MIDODRINE HCL 5MG TABLET PO SCH ×3 (08:55→16:09)
[2021-06-03] MEDS: ISOSORBIDE MONONITRATE 30MG TABLET SR 24HR PO SCH (08:55)
[2021-06-03] MEDS: SODIUM CHLORIDE 0.9% 1,000 ML IV SCH (08:56)
[2021-06-03] MEDS: ENOXAPARIN 30MG/0.3ML SYR SUBCUT SCH (08:59)
[2021-06-03 10:00] LABS: BASOPHILS % 0.1 % (0.0-2.0); HEMATOCRIT. 35.7 % (42.0-52.0); HEMOGLOBIN. 11.6 g/dL (14.0-18.0); LYMPHOCYTES % 8.4 % (20.0-50.0); MEAN CORPUSCULAR HEMOGLOBIN 31.7 pg (28.0-32.0); MEAN CORPUSCULAR VOLUME 97.4 fL (80.0-94.0); MEAN PLATELET VOLUME 10.9 fl (7.4-10.4); MONOCYTES % 7.3 % (2.0-8.0); NEUTROPHILS % 84.2 % (40.0-76.0); PLATELET 86 x1000/uL (130-400); RED BLOOD CELL COUNT 3.66 mill/uL (4.7-6.1); RED CELL DISTRIBUTION WIDTH 14.5 % (11.6-14.6)
[2021-06-03] MEDS: DEXTROSE 5% WATER 1,000 ML IV SCH (10:46)
[2021-06-03 12:00] VITALS: BP 113/60
[2021-06-03] MEDS ORDERED: VANCOMYCIN 2,000 MG in DEXT 5% WATER 500 ML IV SCH (12:00)
[2021-06-03 13:00] LABS: BG BASE EXCESS -0.7 mmol/L (-2.0-2.0); BG CARBOXYHEMOGLOBIN 0.3 % (0.5-1.5); BG DEOXYHEMOGLOBIN 7.1 % (0.0-5.0); BG FRACTION INSPIRED OXYGEN 36; BG HCO3 ACT 23.5 mmol/L (22.0-26.0); BG METHEMOGLOBIN 0.3 % (0.0-1.5); BG OXYGEN SATURATION 92.9 % (92.0-98.5); BG OXYHEMOGLOBIN 92.3 % (94.0-97.0); BG PCO2 37.2 mmHg (35.0-45.0); BG PH 7.419 (7.350-7.450); BG PO2 71.1 mmHg (75.0-100.0); BG SAMPLE SITE RIGHT RADIAL; BG TOTAL HEMOGLOBIN 12.1 g/dL (12.0-18.0); BG VENT MODE NASAL CANNULA
[2021-06-03] MEDS: PIPERACILLIN/TAZOBACTAM 3.375 G in DEXTROSE 5% WATER 50 ML IV SCH ×2 (13:14→22:04)
[2021-06-03] MEDS ORDERED: PIPERACILLIN/TAZOBACTAM 2.25 G in DEXTROSE 5% WATER 50 ML IV SCH (14:00)
[2021-06-03 16:00] VITALS: BP 107/57
[2021-06-03 20:00] VITALS: BP 111/53
[2021-06-03] MEDS: ZOLPIDEM TARTRATE 5MG TABLET PO PRN (20:15)
[2021-06-04 00:01] VITALS: BP 111/54
[2021-06-04 04:00] VITALS: BP 107/61
[2021-06-04] MEDS: SUCRALFATE 1G TABLET PO SCH ×4 (06:40→20:59)
[2021-06-04 07:38] LABS: HEMATOCRIT. 36.1 % (42.0-52.0); HEMOGLOBIN. 12.2 g/dL (14.0-18.0); MEAN CORPUSCULAR HEMOGLOBIN 32.7 pg (28.0-32.0); MEAN CORPUSCULAR VOLUME 96.7 fL (80.0-94.0); MEAN PLATELET VOLUME 11.2 fl (7.4-10.4); PLATELET 85 x1000/uL (130-400); RED BLOOD CELL COUNT 3.73 mill/uL (4.7-6.1); RED CELL DISTRIBUTION WIDTH 14.5 % (11.6-14.6)
[2021-06-04] MEDS: ENOXAPARIN 30MG/0.3ML SYR SUBCUT SCH (08:48)
[2021-06-04] MEDS: ISOSORBIDE MONONITRATE 30MG TABLET SR 24HR PO SCH (08:48)
[2021-06-04] MEDS: AMLODIPINE 5MG TABLET PO SCH (08:49)
[2021-06-04] MEDS: MIDODRINE HCL 5MG TABLET PO SCH ×3 (08:50→16:37)
[2021-06-04] MEDS: FINASTERIDE 5MG TABLET PO SCH (08:51)
[2021-06-04 10:29] VITALS: BP 129/78
[2021-06-04] MEDS: PIPERACILLIN/TAZOBACTAM 3.375 G in DEXTROSE 5% WATER 50 ML IV SCH ×2 (10:35→23:04)
[2021-06-04] MEDS: DEXTROSE 5% WATER 1,000 ML IV SCH (10:35)
[2021-06-04] MEDS: IPRATROPIUM/ALBUTEROL 0.5-3(2.5)MG/3ML NEB HHN SCH ×3 (10:57→20:13)
[2021-06-04 18:15] LABS: PLATELET ESTIMATE DECREASED
[2021-06-04 20:00] VITALS: BP 126/67
[2021-06-05] VITALS: BP 120/67
[2021-06-05] MEDS: IPRATROPIUM/ALBUTEROL 0.5-3(2.5)MG/3ML NEB HHN SCH ×3 (01:41→14:49)
[2021-06-05 04:00] VITALS: BP 122/72
[2021-06-05] MEDS: SUCRALFATE 1G TABLET PO SCH ×4 (06:31→22:23)
[2021-06-05 07:56] LABS: HEMATOCRIT. 38.4 % (42.0-52.0); HEMOGLOBIN. 12.6 g/dL (14.0-18.0); MEAN CORPUSCULAR HEMOGLOBIN 31.9 pg (28.0-32.0); MEAN CORPUSCULAR VOLUME 97.2 fL (80.0-94.0); MEAN PLATELET VOLUME 11.5 fl (7.4-10.4); PLATELET 99 x1000/uL (130-400); RED BLOOD CELL COUNT 3.95 mill/uL (4.7-6.1); RED CELL DISTRIBUTION WIDTH 14.8 % (11.6-14.6)
[2021-06-05] MEDS: MIDODRINE HCL 5MG TABLET PO SCH ×3 (09:18→17:07)
[2021-06-05] MEDS: ENOXAPARIN 30MG/0.3ML SYR SUBCUT SCH (11:04)
[2021-06-05] MEDS: DEXTROSE 5% WATER 1,000 ML IV SCH (11:04)
[2021-06-05] MEDS: PIPERACILLIN/TAZOBACTAM 3.375 G in DEXTROSE 5% WATER 50 ML IV SCH ×2 (11:04→22:23)
[2021-06-05 12:00] VITALS: BP_SYST 102; BP_SYST 128; BP_DIAS 63; BP_DIAS 73
[2021-06-05] MEDS ORDERED: ENOXAPARIN 60MG/0.6ML SYR SUBCUT SCH (14:00)
[2021-06-05 15:53] LABS: PLATELET ESTIMATE DECREASED
[2021-06-05 16:00] VITALS: BP 112/63
[2021-06-05 20:00] VITALS: BP 112/66
[2021-06-05] MEDS: GUAIFENESIN 200MG/10ML SUGAR FREE UDC PO SCH (22:23)
[2021-06-06] VITALS: BP 123/65
[2021-06-06 04:00] VITALS: BP 100/47
[2021-06-06] MEDS: GUAIFENESIN 200MG/10ML SUGAR FREE UDC PO SCH ×4 (05:41→22:13)
[2021-06-06] MEDS: SUCRALFATE 1G TABLET PO SCH ×4 (05:41→20:16)
[2021-06-06 07:52] LABS: HEMATOCRIT. 36.7 % (42.0-52.0); HEMOGLOBIN. 12.1 g/dL (14.0-18.0); MEAN CORPUSCULAR HEMOGLOBIN 32.1 pg (28.0-32.0); MEAN CORPUSCULAR VOLUME 97.2 fL (80.0-94.0); MEAN PLATELET VOLUME 10.9 fl (7.4-10.4); PLATELET 80 x1000/uL (130-400); RED BLOOD CELL COUNT 3.78 mill/uL (4.7-6.1); RED CELL DISTRIBUTION WIDTH 14.7 % (11.6-14.6)
[2021-06-06 08:00] VITALS: BP 114/66
[2021-06-06 08:00] LABS: INR 1.3; PROTHROMBIN TIME 13.6 sec (9.6-11.0)
[2021-06-06 08:28] LABS: PHOSPHORUS 3.9 mg/dL (2.5-4.9)
[2021-06-06] MEDS ORDERED: ENOXAPARIN 100MG/ML SYR SUBCUT SCH (09:00)
[2021-06-06] MEDS: MIDODRINE HCL 5MG TABLET PO SCH ×3 (09:22→17:51)
[2021-06-06 12:00] VITALS: BP 100/71
[2021-06-06] MEDS: PIPERACILLIN/TAZOBACTAM 3.375 G in DEXTROSE 5% WATER 50 ML IV SCH ×2 (12:04→22:13)
[2021-06-06] MEDS: DEXTROSE 5% WATER 1,000 ML IV SCH (12:05)
[2021-06-06 16:00] VITALS: BP 101/63
[2021-06-06] MEDS ORDERED: VANCOMYCIN 500 MG PREMIX 100 ML IV SCH (17:00)
[2021-06-06 17:32] LABS: PLATELET ESTIMATE DECREASED
[2021-06-06 20:00] VITALS: BP 90/58
[2021-06-06] MEDS: ACETAMINOPHEN 325MG TABLET PO PRN (20:16)
[2021-06-07] VITALS: BP 98/54
[2021-06-07 04:00] VITALS: BP 94/55
[2021-06-07] MEDS: SUCRALFATE 1G TABLET PO SCH ×4 (05:41→21:54)
[2021-06-07] MEDS: GUAIFENESIN 200MG/10ML SUGAR FREE UDC PO SCH ×3 (05:41→17:17)
[2021-06-07 07:36] LABS: HEMATOCRIT. 37.4 % (42.0-52.0); HEMOGLOBIN. 12.2 g/dL (14.0-18.0); MEAN CORPUSCULAR HEMOGLOBIN 31.6 pg (28.0-32.0); MEAN CORPUSCULAR VOLUME 96.5 fL (80.0-94.0); MEAN PLATELET VOLUME 11.2 fl (7.4-10.4); PLATELET 97 x1000/uL (130-400); RED BLOOD CELL COUNT 3.88 mill/uL (4.7-6.1)
[2021-06-07] MEDS: ENOXAPARIN 100MG/ML SYR SUBCUT SCH (09:00)
[2021-06-07] MEDS: MIDODRINE HCL 5MG TABLET PO SCH ×3 (09:53→17:17)
[2021-06-07] MEDS: IPRATROPIUM/ALBUTEROL 0.5-3(2.5)MG/3ML NEB HHN SCH ×3 (10:16→18:00)
[2021-06-07] MEDS: PIPERACILLIN/TAZOBACTAM 3.375 G in DEXTROSE 5% WATER 50 ML IV SCH (10:57)
[2021-06-07] MEDS: DEXTROSE 5% WATER 1,000 ML IV SCH (10:57)
[2021-06-07] MEDS: MEROPENEM 1,000 MG in SODIUM CHLORIDE 0.9% 100 ML IV SCH (17:59)
[2021-06-07 20:00] VITALS: BP 116/53
[2021-06-07 20:34] LABS: T4 FREE 0.68 ng/dL (0.76-1.46)
[2021-06-07 20:44] LABS: FOLIC ACID (FOLATE) SERUM 6.4 ng/mL (>5.38)
[2021-06-07 20:45] LABS: PLATELET ESTIMATE DECREASED
[2021-06-08] VITALS: BP 94/53
[2021-06-08] MEDS: GUAIFENESIN 200MG/10ML SUGAR FREE UDC PO SCH ×5 (00:02→23:37)
[2021-06-08 04:00] VITALS: BP 88/43
[2021-06-08] MEDS ORDERED: SODIUM CHLORIDE 0.9% 1,000 ML IV ONE (06:00)
[2021-06-08] MEDS: SUCRALFATE 1G TABLET PO SCH ×4 (06:05→21:52)
[2021-06-08 08:00] VITALS: BP 85/41
[2021-06-08] MEDS: ENOXAPARIN 100MG/ML SYR SUBCUT SCH (08:56)
[2021-06-08] MEDS: MIDODRINE HCL 5MG TABLET PO SCH ×3 (08:56→17:51)
[2021-06-08] MEDS ORDERED: MIDODRINE HCL 5MG TABLET PO SCH (10:00)
[2021-06-08 10:09] LABS: HEMATOCRIT. 34.4 % (42.0-52.0); HEMOGLOBIN. 11.2 g/dL (14.0-18.0); MEAN CORPUSCULAR HEMOGLOBIN 31.3 pg (28.0-32.0); MEAN CORPUSCULAR VOLUME 96.4 fL (80.0-94.0); MEAN PLATELET VOLUME 11.5 fl (7.4-10.4); PLATELET 88 x1000/uL (130-400); RED BLOOD CELL COUNT 3.57 mill/uL (4.7-6.1); RED CELL DISTRIBUTION WIDTH 15.2 % (11.6-14.6)
[2021-06-08] MEDS: IPRATROPIUM/ALBUTEROL 0.5-3(2.5)MG/3ML NEB HHN SCH ×4 (10:13→21:45)
[2021-06-08] MEDS ORDERED: ALBUMIN HUMAN 25GM/100ML (25%) IV SCH (11:00)
[2021-06-08 12:00] VITALS: BP 88/46
[2021-06-08] MEDS ORDERED: POTASSIUM CHLORIDE 20MEQ TABLET SR PO SCH (13:30)
[2021-06-08 14:19] LABS: PLATELET ESTIMATE DECREASED
[2021-06-08 15:36] LABS: HEMATOCRIT 33.8 % (42.0-52.0)
[2021-06-08 15:39] LABS: INR 1.2
[2021-06-08 16:00] VITALS: BP 97/47
[2021-06-08 16:08] LABS: HEPATITIS B SURFACE ANTIGEN NEGATIVE
[2021-06-08] MEDS: MEROPENEM 1,000 MG in SODIUM CHLORIDE 0.9% 100 ML IV SCH (17:50)
[2021-06-08 20:00] VITALS: BP 104/49
[2021-06-08] MEDS: AMIODARONE HCL 200 MG TABLET PO SCH (21:53)
[2021-06-08] MEDS: LATANOPROST 0.005% OPHTH DROPS 2.5ML BOTHEYE SCH (22:51)
[2021-06-09] VITALS (14 sets, daily range): BP systolic 83–113; BP diastolic 38–52
[2021-06-09 00:43] LABS: HEMATOCRIT 34.2 % (42.0-52.0); HEMOGLOBIN 11.3 g/dL (14.0-18.0)
[2021-06-09] MEDS: IPRATROPIUM/ALBUTEROL 0.5-3(2.5)MG/3ML NEB HHN SCH ×2 (02:44→09:44)
[2021-06-09] MEDS: GUAIFENESIN 200MG/10ML SUGAR FREE UDC PO SCH ×3 (07:11→17:05)
[2021-06-09] MEDS: SUCRALFATE 1G TABLET PO SCH ×4 (07:11→20:43)
[2021-06-09] MEDS ORDERED: HEPARIN 1000 UNITS/ML 10ML ONE (08:15)
[2021-06-09] MEDS ORDERED: LIDOCAINE HCL 1% 20ML VIAL (Pyxis) INJ ONE ×2 (08:15→14:51)
[2021-06-09] MEDS: AMIODARONE HCL 200 MG TABLET PO SCH ×2 (09:00→20:40)
[2021-06-09] MEDS: MIDODRINE HCL 5MG TABLET PO SCH ×3 (09:00→17:04)
[2021-06-09 12:10] LABS: HEMATOCRIT. 35.3 % (42.0-52.0); HEMOGLOBIN. 11.3 g/dL (14.0-18.0); MEAN CORPUSCULAR HEMOGLOBIN 30.7 pg (28.0-32.0); MEAN CORPUSCULAR VOLUME 95.7 fL (80.0-94.0); MEAN PLATELET VOLUME 12.2 fl (7.4-10.4); PLATELET 88 x1000/uL (130-400); RED BLOOD CELL COUNT 3.68 mill/uL (4.7-6.1); RED CELL DISTRIBUTION WIDTH 15.3 % (11.6-14.6)
[2021-06-09] MEDS ORDERED: DESMOPRESSIN ACETATE 4MCG/ML AMP IV ONE (14:00)
[2021-06-09] MEDS ORDERED: DESMOPRESSIN ACETATE 30 MCG in SODIUM CHLORIDE 0.9% 50 ML IV SCH (15:00)
[2021-06-09] MEDS ORDERED: VANCOMYCIN 750 MG PREMIX 150 ML IV SCH (17:00)
[2021-06-09] MEDS: MEROPENEM 1,000 MG in SODIUM CHLORIDE 0.9% 100 ML IV SCH (18:31)
[2021-06-09] MEDS: LATANOPROST 0.005% OPHTH DROPS 2.5ML BOTHEYE SCH (21:13)
[2021-06-10] VITALS (7 sets, daily range): BP systolic 97–117; BP diastolic 24–67
[2021-06-10 01:53] LABS: PLATELET ESTIMATE DECREASED
[2021-06-10] MEDS: GUAIFENESIN 200MG/10ML SUGAR FREE UDC PO SCH ×4 (05:02→17:30)
[2021-06-10] MEDS: SUCRALFATE 1G TABLET PO SCH ×4 (06:14→20:30)
[2021-06-10 08:15] LABS: HEMATOCRIT. 36.2 % (42.0-52.0); HEMOGLOBIN. 11.9 g/dL (14.0-18.0); MEAN CORPUSCULAR HEMOGLOBIN 31.6 pg (28.0-32.0); MEAN CORPUSCULAR VOLUME 96.3 fL (80.0-94.0); MEAN PLATELET VOLUME 11.7 fl (7.4-10.4); PLATELET 78 x1000/uL (130-400); RED BLOOD CELL COUNT 3.76 mill/uL (4.7-6.1); RED CELL DISTRIBUTION WIDTH 15.4 % (11.6-14.6)
[2021-06-10] MEDS: MIDODRINE HCL 5MG TABLET PO SCH ×3 (08:38→17:00)
[2021-06-10] MEDS: IPRATROPIUM/ALBUTEROL 0.5-3(2.5)MG/3ML NEB HHN SCH ×3 (08:53→21:39)
[2021-06-10] MEDS: AMIODARONE HCL 200 MG TABLET PO SCH ×2 (09:00→20:31)
[2021-06-10] MEDS: ACETAMINOPHEN 325MG TABLET PO PRN (10:05)
[2021-06-10 14:49] LABS: NUCLEATED RED BLOOD CELLS 1 /100 WBC; PLATELET ESTIMATE DECREASED
[2021-06-10] MEDS: MEROPENEM 1,000 MG in SODIUM CHLORIDE 0.9% 100 ML IV SCH (18:00)
[2021-06-10] MEDS: LATANOPROST 0.005% OPHTH DROPS 2.5ML BOTHEYE SCH (20:31)
== END 2021-06-10 22:10 | DRG 871 ==
LOC: ER 12:03 → EDBEDREQ 12:22 → EDBEDREQTM 13:47 → EDBEDREQ 13:47 → MICUSO 14:18 → EDBEDREQ 15:22 → EDBEDREQTM 15:22 → 7WST 05-28 08:44 → 7EST 05-30 01:57 → 7WST 05-30 08:37 → 7EST 05-30 18:08 → 5WST 06-08 15:56 → 8WST 06-09 09:22
PROVIDERS: ADMIT Internal Medicine Nephrology; ATTEND Internal Medicine Nephrology
PROC: 02HV33Z Insertion of Infusion Device into Superior Vena Cava, Percutaneous Approach (ICD-10-PCS; principal; 2021-05-31)
PROC: B548ZZA Ultrasonography of Superior Vena Cava, Guidance (ICD-10-PCS; 2021-05-31)
PROC: 5A1D70Z Performance of Urinary Filtration, Intermittent, Less than 6 Hours Per Day (ICD-10-PCS; 2021-05-31)
PROC: 5A09357 Assistance with Respiratory Ventilation, Less than 24 Consecutive Hours, Continuous Positive Airway Pressure (ICD-10-PCS; 2021-05-31)
PROC: 5A09357 Assistance with Respiratory Ventilation, Less than 24 Consecutive Hours, Continuous Positive Airway Pressure (ICD-10-PCS; 2021-06-01)
PROC: 5A1D70Z Performance of Urinary Filtration, Intermittent, Less than 6 Hours Per Day (ICD-10-PCS; 2021-06-02)
PROC: 5A1D70Z Performance of Urinary Filtration, Intermittent, Less than 6 Hours Per Day (ICD-10-PCS; 2021-06-03)
PROC: 5A1D70Z Performance of Urinary Filtration, Intermittent, Less than 6 Hours Per Day (ICD-10-PCS; 2021-06-05)
PROC: 5A1D70Z Performance of Urinary Filtration, Intermittent, Less than 6 Hours Per Day (ICD-10-PCS; 2021-06-07)
PROC: 02PYX3Z Removal of Infusion Device from Great Vessel, External Approach (ICD-10-PCS; 2021-06-09)
PROC: 02HV33Z Insertion of Infusion Device into Superior Vena Cava, Percutaneous Approach (ICD-10-PCS; 2021-06-09)
PROC: 0JH63XZ Insertion of Tunneled Vascular Access Device into Chest Subcutaneous Tissue and Fascia, Percutaneous Approach (ICD-10-PCS; 2021-06-09)
PROC: B518ZZA Fluoroscopy of Superior Vena Cava, Guidance (ICD-10-PCS; 2021-06-09)
PROC: B548ZZA Ultrasonography of Superior Vena Cava, Guidance (ICD-10-PCS; 2021-06-09)
PROC: 5A1D70Z Performance of Urinary Filtration, Intermittent, Less than 6 Hours Per Day (ICD-10-PCS; 2021-06-09)
DX: A41.89 Other specified sepsis (principal); I21.4 Non-ST elevation (NSTEMI) myocardial infarction; G82.50 Quadriplegia, unspecified; G92.8 Other toxic encephalopathy; N17.0 Acute kidney failure with tubular necrosis; J96.00 Acute respiratory failure, unspecified whether with hypoxia or hypercapnia; I50.23 Acute on chronic systolic (congestive) heart failure; K57.91 Diverticulosis of intestine, part unspecified, without perforation or abscess with bleeding; U07.1 COVID-19; J12.82 Pneumonia due to coronavirus disease 2019; I13.0 Hypertensive heart and chronic kidney disease with heart failure and stage 1 through stage 4 chronic kidney disease, or unspecified chronic kidney disease; E87.1 Hypo-osmolality and hyponatremia; M62.82 Rhabdomyolysis; E44.1 Mild protein-calorie malnutrition; I82.611 Acute embolism and thrombosis of superficial veins of right upper extremity; C64.9 Malignant neoplasm of unspecified kidney, except renal pelvis; E78.00 Pure hypercholesterolemia, unspecified; E78.5 Hyperlipidemia, unspecified; E87.6 Hypokalemia; I25.10 Atherosclerotic heart disease of native coronary artery without angina pectoris; I25.5 Ischemic cardiomyopathy; Z66 Do not resuscitate; I71.4 Abdominal aortic aneurysm, without rupture; K44.9 Diaphragmatic hernia without obstruction or gangrene; N18.30 Chronic kidney disease, stage 3 unspecified; N40.0 Benign prostatic hyperplasia without lower urinary tract symptoms; R74.01 Elevation of levels of liver transaminase levels; E87.5 Hyperkalemia; D53.9 Nutritional anemia, unspecified; Z20.822 Contact with and (suspected) exposure to COVID-19; K80.20 Calculus of gallbladder without cholecystitis without obstruction; D69.6 Thrombocytopenia, unspecified; U09.9 Post COVID-19 condition, unspecified; R13.10 Dysphagia, unspecified; Z82.49 Family history of ischemic heart disease and other diseases of the circulatory system; Z83.3 Family history of diabetes mellitus; Z85.528 Personal history of other malignant neoplasm of kidney; Z90.5 Acquired absence of kidney; Z95.1 Presence of aortocoronary bypass graft; Z79.899 Other long term (current) drug therapy; Z87.01 Personal history of pneumonia (recurrent)
CPT/HCPCS: 12001; 36415; 36556; 36589; 36600; 70551; 71045; 74176; 76700; 76937; 77001; 78580; 80048; 80053; 80076; 80202; 81003; 82140; 82248; 82270; 82375; 82550; 82607; 82728; 82746; 82805; 82962; 83036; 83540; 83550; 83605; 83615; 83735; 83880; 84100; 84145; 84439; 84443; 84481; 84484; 85014; 85018; 85025; 85044; 85379; 86140; 86705; 86709; 86803; 87340; 87426; 87804; 92610; 93970; 94640; 94660; 97110; 97162; 97166; 97530; 99291; C1750; C1752; C1769; C9803; J0456; J1100; J1644; J1650; J1940; J2060; J2150; J2185; J2405; J2543; J2597; J3370; J3430; J3490; J7030; J7040; J7050; J7060; J7070; P9047; Q9963; U0003; U0005

== ENCOUNTER 2021-06-10 22:10 | Inpatient (IN) | payer MEDICARE, BC ==
[~2021-06-10] VITALS: Ht 170.2 cm; Wt 73.3 kg
[2021-06-10 22:10] VITALS: BP 98/46
[2021-06-10] MEDS ORDERED: GUAIFENESIN 200MG/10ML SUGAR FREE UDC PO PRN (23:45)
[2021-06-10] MEDS ORDERED: DOCUSATE SODIUM 100MG CAPSULE PO PRN (23:45)
[2021-06-10] MEDS ORDERED: IPRATROPIUM/ALBUTEROL 0.5-3(2.5)MG/3ML NEB HHN PRN (23:45)
[2021-06-10] MEDS ORDERED: ACETAMINOPHEN 325MG TABLET PO PRN (23:45)
[2021-06-10] MEDS ORDERED: ONDANSETRON HCL 4MG TABLET PO PRN (23:45)
[2021-06-10] MEDS ORDERED: RACEPINEPHRINE 2.25% 0.5ML NEB VIAL HHN PRN (23:45)
[2021-06-10] MEDS ORDERED: CLONIDINE 0.1MG TABLET PO PRN (23:45)
[2021-06-11] MEDS ORDERED: IPRATROPIUM/ALBUTEROL 0.5-3(2.5)MG/3ML NEB HHN PRN
[2021-06-11] MEDS ORDERED: IPRATROPIUM/ALBUTEROL 0.5-3(2.5)MG/3ML NEB HHN SCH (06:00)
[2021-06-11] MEDS ORDERED: SUCRALFATE 1 G/10 ML UDC PO SCH (06:30)
[2021-06-11 07:47] LABS: BASOPHILS % 0.7 % (0.0-2.0); HEMATOCRIT. 21.6 % (42.0-52.0); HEMOGLOBIN. 7.2 g/dL (14.0-18.0); LYMPHOCYTES % 47.7 % (20.0-50.0); MEAN CORPUSCULAR HEMOGLOBIN 32.3 pg (28.0-32.0); MEAN CORPUSCULAR VOLUME 96.7 fL (80.0-94.0); MONOCYTES % 2.1 % (2.0-8.0); NEUTROPHILS % 48.5 % (40.0-76.0); PLATELET 81 x1000/uL (130-400); RED BLOOD CELL COUNT 2.24 mill/uL (4.7-6.1); RED CELL DISTRIBUTION WIDTH 15.4 % (11.6-14.6)
[2021-06-11 08:05] LABS: CHLORIDE 108 mEq/L (98-107)
[2021-06-11] MEDS ORDERED: AMLODIPINE 5MG TABLET PO SCH (09:00)
[2021-06-11] MEDS ORDERED: MIDODRINE HCL 5MG TABLET PO SCH (09:00)
[2021-06-11] MEDS ORDERED: ISOSORBIDE MONONITRATE 30MG TABLET SR 24HR PO SCH (09:00)
[2021-06-11] MEDS ORDERED: FINASTERIDE 5MG TABLET PO SCH (09:00)
[2021-06-11] MEDS ORDERED: AMIODARONE HCL 200 MG TABLET PO SCH (09:00)
[2021-06-11] MEDS ORDERED: MEROPENEM 1,000 MG in SODIUM CHLORIDE 0.9% 100 ML IV SCH (14:00)
[2021-06-11] MEDS ORDERED: LATANOPROST 0.005% OPHTH DROPS 2.5ML BOTHEYE SCH (21:00)
== END 2021-06-11 10:15 | DRG 70 ==
PROVIDERS: ADMIT Physical Medicine & Rehabilitation Spinal Cord Injury Medicine; ATTEND Internal Medicine Nephrology
DX: G93.41 Metabolic encephalopathy (principal); J12.82 Pneumonia due to coronavirus disease 2019; U07.1 COVID-19; G82.50 Quadriplegia, unspecified; I50.23 Acute on chronic systolic (congestive) heart failure; J96.00 Acute respiratory failure, unspecified whether with hypoxia or hypercapnia; I13.0 Hypertensive heart and chronic kidney disease with heart failure and stage 1 through stage 4 chronic kidney disease, or unspecified chronic kidney disease; M62.82 Rhabdomyolysis; N17.9 Acute kidney failure, unspecified; I42.9 Cardiomyopathy, unspecified; E44.1 Mild protein-calorie malnutrition; I82.611 Acute embolism and thrombosis of superficial veins of right upper extremity; J98.11 Atelectasis; Z66 Do not resuscitate; N18.30 Chronic kidney disease, stage 3 unspecified; E78.5 Hyperlipidemia, unspecified; I25.10 Atherosclerotic heart disease of native coronary artery without angina pectoris; N40.0 Benign prostatic hyperplasia without lower urinary tract symptoms; R74.01 Elevation of levels of liver transaminase levels; R74.8 Abnormal levels of other serum enzymes; R47.1 Dysarthria and anarthria; R13.10 Dysphagia, unspecified; R53.81 Other malaise; R26.9 Unspecified abnormalities of gait and mobility; Z20.822 Contact with and (suspected) exposure to COVID-19; D69.6 Thrombocytopenia, unspecified; I71.4 Abdominal aortic aneurysm, without rupture; K57.30 Diverticulosis of large intestine without perforation or abscess without bleeding; K44.9 Diaphragmatic hernia without obstruction or gangrene; K80.20 Calculus of gallbladder without cholecystitis without obstruction; E87.6 Hypokalemia; Z90.5 Acquired absence of kidney; Z95.1 Presence of aortocoronary bypass graft; Z85.528 Personal history of other malignant neoplasm of kidney; Z82.49 Family history of ischemic heart disease and other diseases of the circulatory system; Z68.25 Body mass index [BMI] 25.0-25.9, adult; U09.9 Post COVID-19 condition, unspecified; R77.8 Other specified abnormalities of plasma proteins
CPT/HCPCS: 36415; 80053; 84134; 85025; J2185; J7050